=== PATIENT | male | born 1950 | race Caucasian/White ===

== ENCOUNTER 2022-04-08 10:59 | Outpatient (CLI) | payer OTHER | END 2022-04-08 11:07 | disposition home or self-care (01) | LOC: SONOGRAMA 10:59 | PROVIDERS: ATTEND Physical Medicine & Rehabilitation | DX: M75.101 Unspecified rotator cuff tear or rupture of right shoulder, not specified as traumatic (principal) ==

== ENCOUNTER 2023-12-09 12:53 | Outpatient (CLI) | payer OTHER | END 2023-12-09 13:02 | disposition home or self-care (01) | LOC: RAD 12:53 | PROVIDERS: ATTEND Physical Medicine & Rehabilitation | DX: M54.2 Cervicalgia (principal) ==